=== PATIENT | female | born 1945 | race Two or more races ===

== ENCOUNTER 2021-03-30 09:23 | Outpatient (CLI) | payer OTHER | END 2021-03-30 09:24 | disposition home or self-care (01) | LOC: NUCLEAR 09:23 | PROVIDERS: ATTEND Internal Medicine | DX: I87.2 Venous insufficiency (chronic) (peripheral) (principal); I73.9 Peripheral vascular disease, unspecified ==

== ENCOUNTER 2021-04-06 09:53 | Outpatient (CLI) | payer OTHER | END 2021-04-06 09:54 | disposition home or self-care (01) | LOC: NUCLEAR 09:53 | PROVIDERS: ATTEND Internal Medicine | DX: I73.9 Peripheral vascular disease, unspecified (principal); I87.2 Venous insufficiency (chronic) (peripheral) ==